=== PATIENT | male | born 1985 | race Caucasian/White ===

== ENCOUNTER 2019-04-13 17:02 | Emergency (ER) | payer OTHER ==
[~2019-04-13] VITALS: Ht 180.3 cm; Wt 145.0 kg
--- NOTE | 2019-04-13 17:05 | NUR ---
Patient arrived to the unit in the company of [employer] and [employer]. Patient is ambulating self. No distress observed. He is on a 5150 for SI. Patient is pleasant and cooperative with care. Hand cuffs removed and patient is changed in green scrubs. Items inventoried and stored. Valuables given to registration. Patient is a smoker and tobacco replacement offered. Labs and urine obtained. Patient offered meal and beverages. He is c/o intrusive thoughts. active SI with tohughts of shooting or hanging himself. He denies HI, but states he feels like killing himself "3 times a week or more". Denies VH but states he hears AH of "backround chatter, I can't make out what they're saying, but it's all the time." PA assessed patient and is ordering oral zyprexa and IM Ativan. Patient is tearful and stated, "I need help".
[2019-04-13] MEDS ORDERED: OLANZapine 2.5MG tablet PO STA (17:20)
[2019-04-13] MEDS ORDERED: LORazepam 2 mg/ml vial IM ONE (17:20)
[2019-04-13 17:39] LABS: BASOPHILS % (AUTO) 0.3 % (0-1); EOSINOPHILS # (AUTO) 0.2 X10'3 (0-0.9); EOSINOPHILS % (AUTO) 2.8 % (0-6); HEMATOCRIT 40.4 % (42.0-52.0); HEMOGLOBIN 14.1 g/dl (14.0-17.9); LYMPHOCYTES # (AUTO) 1.9 X10'3 (1.1-4.8); LYMPHOCYTES % (AUTO) 25.2 % (21-51); MEAN CORPUSCULAR HEMOGLOBIN 31.2 PG (27.0-31.0); MEAN CORPUSCULAR HGB CONC 34.9 g/dL (33.0-36.5); MEAN CORPUSCULAR VOLUME 89.5 FL (78-98); MEAN PLATELET VOLUME 7.1 FL (7.4-10.4); MONOCYTES # (AUTO) 0.6 X10'3 (0-0.9); MONOCYTES % (AUTO) 7.5 % (2-12); NEUTROPHILS # (AUTO) 4.9 X10'3 (1.8-7.7); NEUTROPHILS % (AUTO) 64.2 % (42-75); PLATELET COUNT 306 X10'3 (140-440); RED BLOOD COUNT 4.52 X10'6 (4.70-6.10); WHITE BLOOD COUNT 7.7 X10'3 (4.5-11.0)
[2019-04-13 17:42] LABS: CLARITY,URINE SLIGHTLY CLOUDY (Clear); COLOR,URINE AMBER (Yellow); GLUCOSE, URINE NEGATIVE (Neg); KETONES,URINE TRACE mg/dl (Neg); LEUKOCYTE ESTERASE ,URINE NEGATIVE (Neg); NITRITES, URINE NEGATIVE (Neg); OCCULT BLOOD,URINE NEGATIVE (Neg); PROTEIN,URINE 30 mg/dl (Neg); UA COLLECTION TYPE CLN CATCH MIDSTREAM
[2019-04-13 17:49] LABS: BACTERIA,URINE FEW /HPF (Neg); MUCUS STRANDS MANY /LPF (Neg); RBC,URINE NONE SEEN /HPF (0-2); SQUAMOUS EPITHELIAL CELL,UR FEW /LPF (FEW); WBC,URINE 0-4 /HPF (0-4)
[2019-04-13 17:58] LABS: ALANINE AMINOTRANSFERASE 22 U/L (12-78); ALBUMIN/GLOBULIN RATIO 1.1 (1.1-1.5); ANION GAP 6 (8-16); ASPARTATE AMINO TRANSFERASE 22 U/L (10-37); BILIRUBIN,TOTAL 0.9 MG/DL (0.1-1.0); BLOOD UREA NITROGEN 21 MG/DL (7-18); BUN/CREATININE RATIO 20.2 (5.4-32.0); CALCIUM 8.8 MG/DL (8.5-10.1); CHLORIDE 106 MMOL/L (99-107); CREATININE 1.04 MG/DL (0.60-1.10); GLUCOSE 83 MG/DL (70-104); POTASSIUM 4.4 MMOL/L (3.5-5.1); SODIUM 144 MMOL/L (135-145); TOTAL CARBON DIOXIDE 31.7 MMOL/L (24-32); TOTAL PROTEIN 7.6 G/DL (6.4-8.2); eGFR 83 ML/MIN
[2019-04-13 17:59] LABS: URINE AMPHETAMINE SCREEN POSITIVE (Neg); URINE BARBITUATE SCREEN NEGATIVE (Neg); URINE BENZODIAZEPINES SCREEN NEGATIVE (Neg); URINE CANNABINOID SCREEN POSITIVE (Neg); URINE COCAINE SCREEN NEGATIVE (Neg); URINE METHADONE SCREEN NEGATIVE (Neg); URINE OPIATE SCREEN POSITIVE (Neg); URINE PHENCYCLIDINE SCREEN NEGATIVE (Neg)
[2019-04-13 17:59] LABS: ALKALINE PHOSPHATASE 83 IU/L (46-116); ETHANOL < 0.010 GM/DL (0.0-0.010)
--- NOTE | 2019-04-13 19:30 | NUR ---
Pt is resting queitly in bed with eyes closed. RR WNL.
--- NOTE | 2019-04-13 21:45 | NUR ---
Pt requests a sandwhich, which was given to him. Pt rests in bed quietly
--- NOTE | 2019-04-13 22:15 | NUR ---
PT seen by [facility], who stated they would come back in the morning 04/14/19 to evaluate pt because he was "not maing any sense" and too sleepy to participate in the evaluation.
--- NOTE | 2019-04-13 23:35 | NUR ---
Pt resting quietly RR WNL even and unlabored.
--- NOTE | 2019-04-14 02:38 | NUR ---
Pt asleep RR 14, shifts occasionally but falls back asleep.
--- NOTE | 2019-04-14 05:10 | NUR ---
Pt resting quietly in bed, RR 14 even, unlabored
[2019-04-14 05:36] VITALS: BP 90/55
--- NOTE | 2019-04-14 10:30 | NUR ---
Pt seen by [facility] Rn but wasnt able to complete the evaluation, states he still "feels a little wierd from the medications he had last night"
--- NOTE | 2019-04-14 12:47 | NUR ---
Patient interviewed by [facility] Gwendolyn Gordon
== END 2019-04-14 13:16 | disposition home or self-care (01) ==
LOC: ER 17:02
DX: F20.0 Paranoid schizophrenia (principal); R45.851 Suicidal ideations; F15.10 Other stimulant abuse, uncomplicated; F11.10 Opioid abuse, uncomplicated
CPT/HCPCS: 36415; 80053; 80305; 80320; 81001; 85025; 96372; 99285; J2060

== ENCOUNTER 2019-06-09 11:42 | Emergency (ER) | payer SELFPAY ==
[~2019-06-09] VITALS: Ht 180.3 cm; Wt 75.0 kg
--- NOTE | 2019-06-09 12:30 | NUR ---
pt c/o chest pain and sob
--- NOTE | 2019-06-09 13:01 | NUR ---
pt eloped. pt was not on a hold and [employer] left the patient unattended. [facility] called and notified that the patient eloped. staff attempted to stop patient and redirect him but patient left anyways
[2019-06-09 13:03] LABS: BASOPHILS % (AUTO) 0.1 % (0-1); EOSINOPHILS % (AUTO) 0 % (0-6); HEMATOCRIT 38.3 % (42.0-52.0); LYMPHOCYTES # (AUTO) 0.9 X10'3 (1.1-4.8); LYMPHOCYTES % (AUTO) 8.5 % (21-51); MEAN CORPUSCULAR HEMOGLOBIN 30.6 PG (27.0-31.0); MEAN CORPUSCULAR VOLUME 90.2 FL (78-98); MONOCYTES # (AUTO) 0.8 X10'3 (0-0.9); MONOCYTES % (AUTO) 7.5 % (2-12); NEUTROPHILS # (AUTO) 9.1 X10'3 (1.8-7.7); NEUTROPHILS % (AUTO) 83.9 % (42-75); PLATELET COUNT 288 X10'3 (140-440); RED BLOOD COUNT 4.25 X10'6 (4.70-6.10); RED CELL DISTRIBUTION WIDTH 13.5 % (11.5-14.5); WHITE BLOOD COUNT 10.8 X10'3 (4.5-11.0)
[2019-06-09 13:18] LABS: ALANINE AMINOTRANSFERASE 80 U/L (12-78); ALBUMIN 3.9 G/DL (3.4-5.0); ALBUMIN/GLOBULIN RATIO 1.1 (1.1-1.5); ALKALINE PHOSPHATASE 76 IU/L (46-116); ANION GAP 8 (8-16); ASPARTATE AMINO TRANSFERASE 74 U/L (10-37); BILIRUBIN,TOTAL 1.3 MG/DL (0.1-1.0); BLOOD UREA NITROGEN 25 MG/DL (7-18); BUN/CREATININE RATIO 28.1 (5.4-32.0); CALCIUM 9.2 MG/DL (8.5-10.1); CHLORIDE 103 MMOL/L (99-107); CREATININE 0.89 MG/DL (0.60-1.10); GLUCOSE 103 MG/DL (70-104); POTASSIUM 4.6 MMOL/L (3.5-5.1); SODIUM 137 MMOL/L (135-145); TOTAL CARBON DIOXIDE 26.5 MMOL/L (24-32); TOTAL PROTEIN 7.4 G/DL (6.4-8.2); eGFR > 90 ML/MIN
[2019-06-09 13:27] LABS: CREATINE KINASE 1201 U/L (39-308)
[2019-06-09] MEDS ORDERED: normal saline 1000ML IV soln IVB ONE (13:45)
[2019-06-09 15:46] VITALS: BP 114/70
== END 2019-06-09 15:40 ==
LOC: ER 11:42 → EEVIPCON 11:42 → ER 15:40
DX: S01.01XA Laceration without foreign body of scalp, initial encounter (principal); S80.812A Abrasion, left lower leg, initial encounter; S80.811A Abrasion, right lower leg, initial encounter; M79.18 Myalgia, other site; R07.81 Pleurodynia; M25.531 Pain in right wrist; F20.9 Schizophrenia, unspecified; F15.90 Other stimulant use, unspecified, uncomplicated; F11.90 Opioid use, unspecified, uncomplicated; Y08.89XA Assault by other specified means, initial encounter; Y93.89 Activity, other specified; Y92.89 Other specified places as the place of occurrence of the external cause; Y99.8 Other external cause status
CPT/HCPCS: 36415; 71045; 80053; 82550; 85025; 93005; 99285; J7030